=== PATIENT | female | born 1985 | race African-American/Black ===

== ENCOUNTER 2018-08-13 17:13 | Emergency (ER) | payer MEDICAID ==
[~2018-08-13] VITALS: Ht 162.6 cm; Wt 50.0 kg
[2018-08-13 19:07] VITALS: BP 121/76
== END 2018-08-13 19:10 | disposition home or self-care (01) ==
LOC: ER 17:13
DX: F10.129 Alcohol abuse with intoxication, unspecified (principal); R55 Syncope and collapse; Y90.9 Presence of alcohol in blood, level not specified
CPT/HCPCS: 81025; 93005; 99284

== ENCOUNTER 2018-10-14 15:52 | Emergency (ER) | payer SELFPAY ==
[~2018-10-14] VITALS: Ht 162.6 cm; Wt 61.0 kg
[2018-10-14 15:53] VITALS: BP 111/85
== END 2018-10-14 23:01 | disposition left against medical advice (07) ==
LOC: ER 15:52
DX: F10.129 Alcohol abuse with intoxication, unspecified (principal); Z53.21 Procedure and treatment not carried out due to patient leaving prior to being seen by health care provider; Y90.9 Presence of alcohol in blood, level not specified

== ENCOUNTER 2018-10-26 19:44 | Emergency (ER) | payer SELFPAY ==
[~2018-10-26] VITALS: Ht 157.5 cm; Wt 41.0 kg
[2018-10-26 19:56] VITALS: BP 134/90
== END 2018-10-26 21:00 | disposition left against medical advice (07) ==
LOC: ER 19:44
DX: Z53.21 Procedure and treatment not carried out due to patient leaving prior to being seen by health care provider (principal)
CPT/HCPCS: 99283

== ENCOUNTER 2018-12-06 12:53 | Emergency (ER) | payer SELFPAY ==
[~2018-12-06] VITALS: Ht 160 cm; Wt 53.0 kg
[2018-12-06 13:21] VITALS: BP 115/78
== END 2018-12-06 16:53 | disposition left against medical advice (07) ==
LOC: ER 12:53
DX: S00.81XA Abrasion of other part of head, initial encounter (principal); Z53.21 Procedure and treatment not carried out due to patient leaving prior to being seen by health care provider; X58.XXXA Exposure to other specified factors, initial encounter; Y93.89 Activity, other specified; Y92.89 Other specified places as the place of occurrence of the external cause; Y99.8 Other external cause status

== ENCOUNTER 2019-04-29 16:42 | Emergency (ER) | payer MEDICAID ==
[~2019-04-29] VITALS: Ht 165.1 cm; Wt 50.0 kg
[2019-04-29] MEDS ORDERED: LORAZEPAM 2MG/ML CPJ IV ONE (17:30)
[2019-04-29] MEDS ORDERED: LEVETIRACETAM 500MG PREMIX 100 ML IV ONE (17:30)
[2019-04-29] MEDS ORDERED: SODIUM CHLORIDE 0.9% 1,000 ML IV ONE (17:30)
[2019-04-29 17:49] LABS: CLARITY URINE CLEAR (CLEAR); COLOR URINE YELLOW (YELLOW); KETONES URINE NEGATIVE (NEGATIVE); LEUKOCYTE ESTERASE URINE TRACE (NEGATIVE); NITRITE URINE NEGATIVE (NEGATIVE); OCCULT BLOOD URINE NEGATIVE (NEGATIVE); PROTEIN URINE NEGATIVE (NEGATIVE); SPECIFIC GRAVITY URINE 1.002 (1.005-1.030); UROBILINOGEN URINE 0.2 E.U./dL (0.2-1.0)
[2019-04-29 17:52] LABS: BASOPHILS % 1.3 % (0.0-2.0); HEMATOCRIT. 38.3 % (36.0-48.0); HEMOGLOBIN. 12.9 g/dL (12.0-16.0); LYMPHOCYTES % 45.2 % (20.0-50.0); MEAN CORPUSCULAR HEMOGLOBIN 32.9 pg (28.0-32.0); MEAN CORPUSCULAR VOLUME 97.8 fL (81.0-99.0); MEAN PLATELET VOLUME 8.6 fl (7.4-10.4); MONOCYTES % 11.9 % (2.0-8.0); NEUTROPHILS % 39.6 % (40.0-76.0); PLATELET 99 x1000/uL (130-400); RED BLOOD CELL COUNT 3.92 mill/uL (4.2-5.4); RED CELL DISTRIBUTION WIDTH 14.3 % (11.6-14.6)
[2019-04-29 17:55] LABS: CHLORIDE 107 mEq/L (98-107)
[2019-04-29 18:04] LABS: HCG SCREEN NEGATIVE
[2019-04-29 18:05] LABS: CREATINE KINASE 111 IU/L (26-192)
[2019-04-29 18:14] LABS: CARBAMAZEPINE < 0.5 ug/mL (4-12); ETHANOL BLOOD 421 mg/dL; PHENOBARBITAL < 2.1 ug/mL (15.0-40.0); VALPROIC ACID < 3.0 ug/mL (50-100)
[2019-04-29 18:23] LABS: *AMPHETAMINES SCREEN URINE NEGATIVE (NEGATIVE); *BARBITURATES SCREEN URINE NEGATIVE (NEGATIVE); *COCAINE SCREEN URINE NEGATIVE (NEGATIVE)
[2019-04-29 18:24] LABS: CANNABINOID URINE SCREEN NEGATIVE (NEGATIVE); METHADONE URINE SCREEN NEGATIVE (NEGATIVE); OPIATES URINE SCREEN NEGATIVE (NEGATIVE); PHENCYCLIDINE URINE SCREEN NEGATIVE (NEGATIVE)
[2019-04-29 18:25] LABS: *BENZODIAZEPINES SCREEN URINE NEGATIVE (NEGATIVE)
[2019-04-29 22:42] VITALS: BP 106/68
== END 2019-04-29 22:57 | disposition home or self-care (01) ==
LOC: ER 17:36
DX: G40.909 Epilepsy, unspecified, not intractable, without status epilepticus (principal); F10.129 Alcohol abuse with intoxication, unspecified; Y90.8 Blood alcohol level of 240 mg/100 ml or more; Z86.73 Personal history of transient ischemic attack (TIA), and cerebral infarction without residual deficits; Z98.890 Other specified postprocedural states
CPT/HCPCS: 36415; 80053; 80156; 80165; 80184; 80185; 80305; 80320; 81003; 81025; 82550; 83690; 84443; 84484; 84703; 85025; 93005; 96365; 96375; 99284; J1953; J2060; J7030; Z7610; G0480

== ENCOUNTER 2019-07-28 14:08 | Emergency (ER) | payer MEDICAID ==
[~2019-07-28] VITALS: Ht 157.5 cm; Wt 50.0 kg
[2019-07-28 14:13] VITALS: BP 136/80
[2019-07-28] MEDS ORDERED: LEVE1000 PO (14:17)
[2019-07-28] MEDS ORDERED: MORPHINE SULFATE 4 MG/ML CPJ (NOT FOR IM USE) IV ONE (14:30)
== END 2019-07-28 14:42 | disposition left against medical advice (07) ==
LOC: ER 14:19
DX: R56.9 Unspecified convulsions (principal); Z53.21 Procedure and treatment not carried out due to patient leaving prior to being seen by health care provider

== ENCOUNTER 2019-08-27 18:26 | Emergency (ER) | payer MEDICAID ==
[~2019-08-27] VITALS: Ht 165.1 cm; Wt 50.0 kg
[~2019-08-27 18:26] MED LIST: LEVE1000 PO
[2019-08-27] MEDS ORDERED: LEVETIRACETAM 500MG PREMIX 100 ML IV ONE (19:45)
[2019-08-27 19:51] VITALS: BP 106/78
[2019-08-27 20:00] LABS: CHLORIDE 106 mEq/L (98-107)
[2019-08-27 20:01] LABS: BASOPHILS % 1.9 % (0.0-2.0); HEMATOCRIT. 37.1 % (36.0-48.0); HEMOGLOBIN. 12.5 g/dL (12.0-16.0); LYMPHOCYTES % 48.6 % (20.0-50.0); MEAN CORPUSCULAR HEMOGLOBIN 33.2 pg (28.0-32.0); MEAN CORPUSCULAR VOLUME 98.9 fL (81.0-99.0); MEAN PLATELET VOLUME 7.8 fl (7.4-10.4); MONOCYTES % 12.1 % (2.0-8.0); NEUTROPHILS % 36.4 % (40.0-76.0); PLATELET 160 x1000/uL (130-400); RED BLOOD CELL COUNT 3.75 mill/uL (4.2-5.4); RED CELL DISTRIBUTION WIDTH 13.3 % (11.6-14.6)
[2019-08-27 20:04] LABS: HCG SCREEN NEGATIVE
[2019-08-27] MEDS ORDERED: KETOROLAC 15MG/ML VIAL IV ONE (20:30)
== END 2019-08-27 20:48 | disposition left against medical advice (07) ==
LOC: ER 18:45
DX: S09.8XXA Other specified injuries of head, initial encounter (principal); R56.9 Unspecified convulsions; W18.39XA Other fall on same level, initial encounter; Y93.89 Activity, other specified; Y92.89 Other specified places as the place of occurrence of the external cause; Y99.8 Other external cause status; Z86.73 Personal history of transient ischemic attack (TIA), and cerebral infarction without residual deficits
CPT/HCPCS: 36415; 80053; 84703; 85025; 96365; 99283; J1953; Z7610

== ENCOUNTER 2019-08-31 17:36 | Emergency (ER) | payer MEDICAID ==
[~2019-08-31] VITALS: Ht 152.4 cm; Wt 50.0 kg
[2019-08-31 17:37] VITALS: BP 131/84
== END 2019-08-31 20:08 | disposition left against medical advice (07) ==
LOC: ER 19:53
DX: Z53.21 Procedure and treatment not carried out due to patient leaving prior to being seen by health care provider (principal)

== ENCOUNTER 2019-10-06 17:37 | Emergency (ER) | payer MEDICAID ==
[~2019-10-06] VITALS: Ht 152.4 cm; Wt 75.0 kg
[2019-10-06 17:40] VITALS: BP 135/86
== END 2019-10-06 17:55 | disposition left against medical advice (07) ==
LOC: ER 17:37
DX: H92.01 Otalgia, right ear (principal); Z53.21 Procedure and treatment not carried out due to patient leaving prior to being seen by health care provider

== ENCOUNTER 2019-10-07 13:53 | Emergency (ER) | payer MEDICAID ==
[~2019-10-07] VITALS: Ht 152.4 cm; Wt 50.0 kg
[2019-10-07 14:03] VITALS: BP 100/66
[2019-10-07] MEDS ORDERED: LEVETIRACETAM 500MG PREMIX 100 ML IV ONE (15:30)
== END 2019-10-07 15:30 | disposition left against medical advice (07) ==
LOC: ER 14:08
DX: G40.909 Epilepsy, unspecified, not intractable, without status epilepticus (principal); F17.290 Nicotine dependence, other tobacco product, uncomplicated
CPT/HCPCS: 99283; 99406

== ENCOUNTER 2019-10-12 13:08 | Emergency (ER) | payer MEDICAID ==
[~2019-10-12] VITALS: Ht 160 cm; Wt 60.0 kg
[2019-10-12 13:21] VITALS: BP 123/92
== END 2019-10-12 14:47 | disposition left against medical advice (07) ==
LOC: ER 13:14
DX: Z53.21 Procedure and treatment not carried out due to patient leaving prior to being seen by health care provider (principal)

== ENCOUNTER 2019-10-31 14:34 | Emergency (ER) | payer MEDICAID ==
[~2019-10-31] VITALS: Ht 162.6 cm; Wt 61.0 kg
[2019-10-31 14:47] VITALS: BP 120/86
== END 2019-10-31 20:31 | disposition left against medical advice (07) ==
LOC: ER 14:34
DX: R53.1 Weakness (principal); Z53.21 Procedure and treatment not carried out due to patient leaving prior to being seen by health care provider

== ENCOUNTER 2020-01-28 13:07 | Emergency (ER) | payer MEDICAID ==
[~2020-01-28] VITALS: Ht 162.6 cm; Wt 53.0 kg
[2020-01-28] MEDS ORDERED: LEVETIRACETAM 1000MG/100ML 100 ML IV ONE (13:15)
[2020-01-28 14:23] LABS: CLARITY URINE CLEAR (CLEAR); COLOR URINE YELLOW (YELLOW); KETONES URINE NEGATIVE (NEGATIVE); LEUKOCYTE ESTERASE URINE NEGATIVE (NEGATIVE); NITRITE URINE NEGATIVE (NEGATIVE); OCCULT BLOOD URINE TRACE (NEGATIVE); PROTEIN URINE NEGATIVE (NEGATIVE); SPECIFIC GRAVITY URINE 1.003 (1.005-1.030); UROBILINOGEN URINE 0.2 E.U./dL (0.2-1.0)
[2020-01-28 14:24] LABS: BASOPHILS % 1.1 % (0.0-2.0); EOSINOPHILS % 0.8 % (0.0-5.0); HEMATOCRIT. 38.4 % (36.0-48.0); HEMOGLOBIN. 13.1 g/dL (12.0-16.0); LYMPHOCYTES % 29.8 % (20.0-50.0); MEAN CORPUSCULAR HEMOGLOBIN 33.2 pg (28.0-32.0); MEAN CORPUSCULAR VOLUME 96.9 fL (81.0-99.0); MEAN PLATELET VOLUME 7.3 fl (7.4-10.4); MONOCYTES % 14.2 % (2.0-8.0); NEUTROPHILS % 54.1 % (40.0-76.0); PLATELET 181 x1000/uL (130-400); RED BLOOD CELL COUNT 3.96 mill/uL (4.2-5.4); RED CELL DISTRIBUTION WIDTH 14.5 % (11.6-14.6)
[2020-01-28 14:27] LABS: CHLORIDE 103 mEq/L (98-107)
[2020-01-28 14:37] LABS: *AMPHETAMINES SCREEN URINE NEGATIVE (NEGATIVE); *BARBITURATES SCREEN URINE NEGATIVE (NEGATIVE); *BENZODIAZEPINES SCREEN URINE NEGATIVE (NEGATIVE); *COCAINE SCREEN URINE NEGATIVE (NEGATIVE); METHADONE URINE SCREEN NEGATIVE (NEGATIVE); OPIATES URINE SCREEN NEGATIVE (NEGATIVE); PHENCYCLIDINE URINE SCREEN NEGATIVE (NEGATIVE)
[2020-01-28 14:39] LABS: CANNABINOID URINE SCREEN NEGATIVE (NEGATIVE)
[2020-01-28 14:41] LABS: ETHANOL BLOOD 396 mg/dL
[2020-01-28 14:49] VITALS: BP 114/75
== END 2020-01-28 14:54 | disposition home or self-care (01) ==
LOC: ER 13:07
DX: R56.9 Unspecified convulsions (principal)
CPT/HCPCS: 36415; 80053; 80305; 80320; 81003; 81025; 85025; 96365; 99284; J1953; G0480

== ENCOUNTER 2022-02-12 19:42 | Emergency (ER) | payer MEDICAID ==
[~2022-02-12] VITALS: Ht 162.6 cm; Wt 41.0 kg
[2022-02-12 20:01] VITALS: BP 120/90
== END 2022-02-12 22:00 | disposition left against medical advice (07) ==
LOC: ER 19:42
DX: Z53.21 Procedure and treatment not carried out due to patient leaving prior to being seen by health care provider (principal)
CPT/HCPCS: 99283

== ENCOUNTER 2023-06-28 13:16 | Emergency (ER) | payer MEDICAID ==
[~2023-06-28] VITALS: Ht 152.4 cm; Wt 48.0 kg
[2023-06-28 13:25] VITALS: TEMP 98.5; O2SAT 100
[2023-06-28 14:13] LABS: CHLORIDE 91 mEq/L (98-107); INDEX HEMOLYSI 1 (1-3); INDEX ICTERIC 1 (1-4); INDEX LIPEMIC 1 (1-3); PARTIAL THROMBOPLASTIN TIME 35.2 sec (23.4-31.0); POTASSIUM 3.2 mEq/L (3.5-5.1); PROTHROMBIN TIME 10.8 sec (9.6-11.0); SODIUM 132 mEq/L (136-145)
[2023-06-28 14:21] LABS: ALANINE AMINOTRANSFERASE 27 IU/L (13-61); ALBUMIN 3.4 g/dL (3.4-5.0); ASPARTATE AMINOTRANSFERASE 43 IU/L (15-37); BILIRUBIN TOTAL 0.4 mg/dL (0.1-1.0); CALCIUM 9.2 mg/dL (8.5-10.1); CARBON DIOXIDE 29 mEq/L (21-32); CREATINE KINASE 30 IU/L (26-192); CREATININE 0.4 mg/dL (0.6-1.3); GLUCOSE 99 mg/dL (70-105); HEMATOCRIT. 37.2 % (36.0-48.0); HEMOGLOBIN. 12.6 g/dL (12.0-16.0); MEAN CORPUSCULAR HEMOGLOBIN 33.9 pg (28.0-32.0); MEAN CORPUSCULAR HGB CONC 33.8 g/dL (31.0-37.0); MEAN CORPUSCULAR VOLUME 100.3 fL (81.0-99.0); MEAN PLATELET VOLUME 8.1 fl (7.4-10.4); PLATELET 225 x1000/uL (130-400); PROTEIN TOTAL 8.2 g/dL (6.0-8.3); RED BLOOD CELL COUNT 3.71 mill/uL (4.2-5.4); RED CELL DISTRIBUTION WIDTH 13.7 % (11.6-14.6); UREA NITROGEN BLOOD 2 mg/dL (7-21); WHITE BLOOD COUNT 7.4 x1000/uL (4.5-11.0)
[2023-06-28 14:29] LABS: DIFFERENTIAL COMMENT 1
[2023-06-28] MEDS ORDERED: POTASSIUM CHLORIDE 20MEQ TABLET SR PO NR (15:00)
[2023-06-28] MEDS ORDERED: KETOROLAC 30MG/ML VIAL IM NR (16:30)
[2023-06-28] MEDS ORDERED: HYDROCODONE/ACETAMINOPHEN 10/325MG TABLET PO NR (16:30)
[2023-06-28 16:31] LABS: PLATELET ESTIMATE NORMAL
[2023-06-28 16:32] LABS: ANISOCYTOSIS 1+
[2023-06-28 17:12] VITALS: BP 130/85; PULSE 109; RESP 19
[2023-06-28] MEDS ORDERED: IPRATROPIUM/ALBUTEROL 0.5-3(2.5)MG/3ML NEB HHN PRN (22:00)
[2023-06-28] MEDS ORDERED: CLONIDINE 0.1MG TABLET PO PRN (22:00)
[2023-06-28] MEDS ORDERED: HYDROCODONE/ACETAMINOPHEN 7.5/325MG TABLET PO PRN (22:00)
[2023-06-28] MEDS ORDERED: ONDANSETRON HCL 4MG/2ML INJ IV PRN (22:00)
[2023-06-28] MEDS ORDERED: GUAIFENESIN 200MG/10ML SUGAR FREE UDC PO PRN (22:00)
[2023-06-28] MEDS ORDERED: MAGNESIUM/ALUMINUM HYDROXIDE/SIMETHICONE 30ML UDC PO PRN (22:00)
[2023-06-28] MEDS ORDERED: ACETAMINOPHEN 650MG/20.3ML UDC GT PRN (22:00)
[2023-06-28] MEDS ORDERED: ACETAMINOPHEN 325MG TABLET PO PRN (22:00)
[2023-06-28] MEDS ORDERED: DOCUSATE SODIUM 100MG CAPSULE PO PRN (22:00)
[2023-06-28] MEDS ORDERED: NALOXONE HCL 0.4MG/ML VIAL IV PRN (22:15)
[2023-06-29] MEDS ORDERED: LEVETIRACETAM 500MG TABLET PO SCH (09:00)
== END 2023-06-28 20:03 | disposition left against medical advice (07) ==
LOC: ER 13:16 → CANBEDREQ 19:57 → ER 20:03
DX: S42.411A Displaced simple supracondylar fracture without intercondylar fracture of right humerus, initial encounter for closed fracture (principal); W18.30XA Fall on same level, unspecified, initial encounter; Y93.89 Activity, other specified; Y92.89 Other specified places as the place of occurrence of the external cause; Y99.8 Other external cause status
CPT/HCPCS: 80053; 81025; 82550; 85025; 85610; 85730; 36415; 73030; 73060; 73080; 73090; 73110; 73120; 29105; 96372; 99284; J1885; Z7610